=== PATIENT | female | born 1965 | race Two or more races ===

== ENCOUNTER 2017-01-27 15:53 | Emergency (ER) ==
[2017-01-27 16:00] VITALS: BP 174/112; TEMP 97.8; BMI 25.0
--- NOTE | 2017-01-27 16:27 | ED.PDOC ---
General ED Provider: Dr. DIAMOND PAPPAS Chief Complaint: Hand Pain/Injury Stated Complaint: Hit left hand on metal rail 15 minutes prior to arrival in ED Time Seen by Physician: 16:21 Mode of Arrival: Walk-In Information Source: Patient Nursing and Triage Documentation Reviewed and Agree: Yes Musculoskeletal Complaint Exam - Hand/Wrist Complaint/Exam Location of Pain: Reports: Left, Hand Mechanism of Injury: Reports: Trauma Onset/Duration: 15 minutes ago Symptoms Are: Still present Onset of Pain: Reports: Immediate Initial Severity: Moderate Current Severity: Moderate Location: Reports: Discrete (injure base of index finger dorsal side and associated MCP) Character: Reports: Aching, Throbbing Alleviating: Reports: None Aggravating: Reports: Movement Associated Signs and Symptoms: Reports: Swelling, Redness Dominant Hand: Right Related Surgical History: Reports: None Hand/Wrist Findings: Present: Swelling (linear abrasion across base of index finger. Swelling, erythema, and tenderness of MCP), Erythema, Warmth Tenderness: Present: Phalanx Compartment Syndrome Risk Factors: Present: Pain Differential Diagnoses: Contusion, Closed Fracture, Sprain Review of Systems - Review Of Systems Constitutional: Reports: No symptoms Musculoskeletal: Reports: Joint pain, Joint swelling Skin: Reports: Change in color (erythema of left index finger MCP joint), Other (minor linear abrasion across base of dorsal left index finger) Neurological: Reports: No symptoms All Other Systems: Reviewed and Negative Past Medical History - Past Medical History Previously Healthy: Yes Endocrine: Reports: None Cardiovascular: Reports: None Respiratory: Reports: None Hematological: Reports: None Gastrointestinal: Reports: None Genitourinary: Reports: None Neuro/Psych: Reports: None Musculoskeletal: Reports: None Cancer: Reports: None Last Menstrual Period: HYSTERECTOMY - Surgical History General Surgical History: Reports: Hysterectomy - Family History Family History: Reports: None - Social History Smoking Status: Current every day smoker, Heavy tobacco smoker Hx Substance Use: No Alcohol Screening: None - Immunizations Tetanus Shot up to Date: Yes Physical Exam - Physical Exam Appearance: Well-appearing, No pain distress, Well-nourished Ill-appearing: None Pain Distress: None Musculoskeletal: Edema Skin: Warm (erythematous, swollen, tender left index finger MCP joint, linear minor abrasion across same finger base, dorsal side), Dry Interpretation - Radiology Interpretation Radiology Interpretation By: ED Physician Radiology Results: Negative Exam Interpreted: Other (Xray left hand: no fracture or dislocation) Critical Care Note - Critical Care Note Total Time (mins): 0 Course - Course Orders, Labs, Meds: Orders Category Date Time Status HAND, LEFT 3 VIEWS Stat RADS 01/27/17 16:34 Taken Vital Signs: Temp Pulse Resp BP Pulse Ox 01/27/17 15:53 97.8 F 108 H 22 174/112 H 95 Departure - Departure Time of Disposition: 17:01 Disposition: HOME SELF-CARE Discharge Problem: Unspecified sprain of left index finger, initial encounter Instructions: Finger Sprain (ED) Condition: Good Pt referred to PMD for follow-up: No (if no better in one week, see PCP for follow up) Additional Instructions: OTC ibuprofen 600 mg 3 times a day Allergies/Adverse Reactions: Allergies No Known Allergies Allergy (Unverified 01/27/17 16:00) Home Medications: Ambulatory Orders 1 [No Reported Medications] 01/27/17 Disposition Discussed With: Patient
--- NOTE | 2017-01-27 17:04 | DI ---
EXAM: Three Views of the left hand HISTORY: Injury to the base of the index finger TECHNIQUE: AP lateral, oblique views of the left hand were obtained. FINDINGS: No acute fractures are seen. There is anatomic alignment. The soft tissues are normal. IMPRESSION: No acute fracture dislocation seen within the left hand.
== END 2017-01-27 17:13 | disposition home or self-care (01) ==
LOC: ED 15:53
DX: S63.611A Unspecified sprain of left index finger, initial encounter (principal); W22.8XXA Striking against or struck by other objects, initial encounter; F17.210 Nicotine dependence, cigarettes, uncomplicated
CPT/HCPCS: 99282

== ENCOUNTER 2017-02-19 12:31 | Outpatient (CLI) ==
[2017-02-19 13:03] LABS: BASOPHILS # (AUTO) 0.1 K/uL (0-0.2); BASOPHILS % (AUTO) 0.9 % (0.0-3.0); EOSINOPHILS # (AUTO) 0.5 K/ul (0.0-0.7); EOSINOPHILS % (AUTO) 5.9 % (0.0-7.0); HEMATOCRIT 41.4 % (37.0-47.0); HEMOGLOBIN 14.5 g/dl (12.0-16.0); IMMATURE GRANULOCYTE % (AUTO) 0.4 % (0.0-5.0); LYMPHOCYTES # (AUTO) 1.1 K/uL (0.60-3.4); LYMPHOCYTES % (AUTO) 13.1 (10.0-50.0); MEAN CORPUSCULAR HEMOGLOBIN 30.1 pg (27.0-31.0); MEAN CORPUSCULAR VOLUME 85.9 fl (81.0-99.0); MONOCYTES # (AUTO) 0.9 K/uL (0.4-2.0); MONOCYTES % (AUTO) 11.5 (0-10); NEUTROPHILS # (AUTO) 5.5 K/ul (2.0-6.9); NEUTROPHILS % (AUTO) 68.2; PLATELET COUNT 249 10^3/uL (140-440); RED BLOOD COUNT 4.82 10^6/ul (4.20-5.40); WHITE BLOOD COUNT 7.99 K/ul (4.6-10.2)
[2017-02-19 13:43] LABS: ALBUMIN 3.9 g/dL (3.4-5.0); ALBUMIN/GLOBULIN RATIO 1.05; ANION GAP 13.1; BILIRUBIN,TOTAL 0.7 mg/dL (0.00-1.20); BUN/CREATININE RATIO 24.13; CALCIUM 10.2 mg/dL (8.2-10.2); CHOL/HDL RATIO 2.8 (4.5-5.5); CREATININE 0.87 mg/dL (0.60-1.30); POTASSIUM 4.1 mmol/L (3.5-5.10); TOTAL PROTEIN 7.6 g/dL (6.4-8.2)
== END 2017-02-19 12:32 | disposition home or self-care (01) ==
LOC: LAB 12:31
PROVIDERS: ATTEND Emergency Medicine
DX: F33.1 Major depressive disorder, recurrent, moderate (principal); M32.19 Other organ or system involvement in systemic lupus erythematosus; F17.200 Nicotine dependence, unspecified, uncomplicated
CPT/HCPCS: 36415; 80053; 80061; 84443; 85025

== ENCOUNTER 2017-03-03 11:38 | Inpatient (IN) ==
[2017-03-03] MEDS ORDERED: SODIUM CHLORIDE 1,000 ML IV STA (11:47)
[2017-03-03] MEDS ORDERED: SOLU-MEDROL 40 MG IVP STA (11:48)
[2017-03-03] MEDS ORDERED: ROCEPHIN 1 GM in SODIUM CHLORIDE 50 ML IV STA (11:48)
[2017-03-03] MEDS ORDERED: DUONEB NEB STA (11:49)
[2017-03-03] MEDS ORDERED: ROCEPHIN ONE (11:57)
[2017-03-03 12:10] LABS: BASOPHILS % (AUTO) 0.5 % (0.0-3.0); EOSINOPHILS # (AUTO) 0.2 K/ul (0.0-0.7); EOSINOPHILS % (AUTO) 2.7 % (0.0-7.0); HEMATOCRIT 43.6 % (37.0-47.0); HEMOGLOBIN 14.9 g/dl (12.0-16.0); IMMATURE GRANULOCYTE % (AUTO) 0.1 % (0.0-5.0); LYMPHOCYTES # (AUTO) 2.5 K/uL (0.60-3.4); LYMPHOCYTES % (AUTO) 29.9 (10.0-50.0); MEAN CORPUSCULAR HEMOGLOBIN 30.1 pg (27.0-31.0); MEAN CORPUSCULAR HGB CONC 34.2 (31.8-35.4); MEAN CORPUSCULAR VOLUME 88.1 fl (81.0-99.0); MONOCYTES # (AUTO) 0.4 K/uL (0.4-2.0); MONOCYTES % (AUTO) 5.1 (0-10); NEUTROPHILS # (AUTO) 5.1 K/ul (2.0-6.9); NEUTROPHILS % (AUTO) 61.7; PLATELET COUNT 277 10^3/uL (140-440); RED BLOOD COUNT 4.95 10^6/ul (4.20-5.40); WHITE BLOOD COUNT 8.25 K/ul (4.6-10.2)
--- NOTE | 2017-03-03 12:11 | CT ---
EXAM: CT of the chest without contrast. HISTORY: Productive cough. COMPARISON: None. TECHNIQUE: Contiguous axial images at 5 mm intervals obtained from the lung apices to the upper abdo men. Study was performed without contrast. Sagittal and coronal reformats reviewed. FINDINGS: The lung windows show no lobar consolidation or effusion. There are scattered emphysemato us changes bilaterally. Subpleural blebs seen in the right upper lobe. The pulmonary interstitium i s normal. The airways are widely patent. On axial image 37, there is a noncalcified nodule measurin g 3 mm. There are subpleural nodules in the right middle lobe measuring up to 5 mm on axial image 44. No other nodules are identified. The soft tissue windows demonstrate a normal size heart. There i s no significant mediastinal or hilar adenopathy. Coronary artery calcifications are seen. Limited views of the upper abdomen are unremarkable. The visualized portion of the liver, spleen, pa ncreas adrenal glands are normal. IMPRESSION: 1. No acute pulmonary disease. 2. Benign-appearing noncalcified nodules on the right. When to the fissure site criteria, in the low risk patient, no further follow-up is needed. In the high risk patient, consider CT in 12 months. 3. Bullous disease.
[2017-03-03 12:27] LABS: FLU INTERNAL QC INTERNAL QC VALID; RAPID FLU A NEGATIVE (NEGATIVE); RAPID FLU B NEGATIVE (NEGATIVE)
[2017-03-03 12:33] LABS: ALBUMIN 3.6 g/dL (3.4-5.0); ALBUMIN/GLOBULIN RATIO 0.84; BILIRUBIN,TOTAL 0.57 mg/dL (0.00-1.20); BUN/CREATININE RATIO 19.76; CALCIUM 9.8 mg/dL (8.2-10.2); CREATININE 0.86 mg/dL (0.60-1.30); TOTAL PROTEIN 7.9 g/dL (6.4-8.2)
[2017-03-03 12:38] LABS: ABG PCO2 36.2 mmHg (35-45); ABG PH 7.424 (7.35-7.45)
[2017-03-03 12:39] LABS: ABG BASE EXCESS -1 (-2.0-2.0); ABG HCO3 23.7 (22.0-26.0); ABG TCO2 25 (22.0-28.0)
--- NOTE | 2017-03-03 12:47 | ED.PDOC ---
General ED Provider: Dr. KAVEH LOGAN-ER Chief Complaint: Respiratory Complaint Stated Complaint: i cant breathe--im wheezing and coughing Time Seen by Physician: 11:45 Mode of Arrival: Walk-In Information Source: Patient Exam Limitations: No limitations Primary Care Provider: [facility] Nursing and Triage Documentation Reviewed and Agree: Yes Respiratory Complaint Exam - Respiratory Complaint/Exam Onset/Duration: several days Symptoms Are: Still present Timing: Constant Initial Severity: Mild Current Severity: Moderate Location: Chest Character: Reports: Productive cough Aggravating: Reports: URI, Passive smoke exposure Alleviating: Reports: Antibiotics Associated Signs and Symptoms: Reports: Dyspnea, Wheezing, URI. Denies: Rapid breathing, Fever, Chills, Chest pain, Pleuritic chest pain, Hemoptysis, Dizziness, Calf pain, Calf swelling, Edema, Nasal congestion, Hoarseness, Sinus discomfort, Vomiting, Sore throat, Weight loss, Decreased oral intake, Increased thirst, Increased appetite, Increased urination Related History: Reports: Similar episode History of Healthcare-Acquired Pneumonia: No Cardiac Risk Factors: Reports: Smoking Pseudomonas Risk Factors: Reports: Chronic Lung Disease Tuberculosis Risk Factors: Reports: None Status Asthmaticus Risk Factors: Reports: None Home Oxygen Use: No Recent Stress Test: No Recent Echo/LV Function: No Current Antibiotic Use: No Current Asthma Medication Use: Yes Respiratory Distress: Mild Inadequate Respiratory Effort: No Dysphagia Present: No Stridor Present: No JVD Present: No Accessory Muscle Use: No Retractions: Not Present Diminished Breath Sounds: No Prolonged Respiration: Expiratory phase Sinus Tenderness: None Grunting Respirations: No Kussmaul Respirations: No Differential Diagnoses: Asthma, CHF, COPD Exacerbation Review of Systems - Review Of Systems Constitutional: Reports: No symptoms Eyes: Reports: No symptoms Ears, Nose, Mouth, Throat: Reports: No symptoms Respiratory: Reports: Cough, Short of air, Wheezing Cardiac: Reports: No symptoms GI: Reports: No symptoms : Reports: No symptoms Musculoskeletal: Reports: No symptoms Skin: Reports: No symptoms Neurological: Reports: No symptoms Endocrine: Reports: No symptoms Hematologic/Lymphatic: Reports: No symptoms All Other Systems: Reviewed and Negative Past Medical History - Past Medical History Previously Healthy: Yes Endocrine: Reports: None Cardiovascular: Reports: None Respiratory: Reports: COPD, Asthma Hematological: Reports: None Gastrointestinal: Reports: None Genitourinary: Reports: None Neuro/Psych: Reports: None Musculoskeletal: Reports: None Cancer: Reports: None Last Menstrual Period: n/a - Surgical History General Surgical History: Reports: Hysterectomy - Family History Family History: Reports: None - Social History Smoking Status: Current every day smoker Hx Substance Use: No Alcohol Screening: None Physical Exam - Physical Exam Appearance: Well-appearing, No pain distress, Well-nourished Eyes: ZEINAB, EOMI, Conjunctiva clear ENT: Ears normal, Nose normal, Oropharynx normal Neck: Supple Respiratory: Rhonchi, Wheezes Cardiovascular: RRR GI/: Soft, Nontender, No masses, Bowel sounds normal, No Organomegaly Musculoskeletal: Normal strength Skin: Warm Neurological: Sensation intact, Motor intact, Reflexes intact, Cranial nerves intact, Alert, Oriented Psychiatric: Affect appropriate, Mood appropriate, Anxious Interpretation - Radiology Interpretation Radiology Interpretation By: ED Physician Radiology Results: No acute changes ("bullous dz") Re-Evaluation - Re-Evaluation Time of Re-Evaluation: 12:47 Status: Improved Vital Signs Stable: Yes Pain Level: 0 Appearance: NAD Lungs: Clear Skin: Warm and Dry Neuro: Alert and Oriented X3 CV: RRR Physician Notification - Case Discussed Physician Notified: dr [email or web address] Time of Notification: 12:57 Critical Care Note - Critical Care Note Total Time (mins): 0 Course - Course Hematology/Chemistry: 03/03/17 12:03 03/03/17 12:03 Orders, Labs, Meds: Lab Review 03/03/17 03/03/17 03/03/17 11:46 12:03 12:03 WBC 8.25 RBC 4.95 Hgb 14.9 Hct 43.6 MCV 88.1 MCH 30.1 MCHC 34.2 RDW Coeff of [place] 13.7 Plt Count 277 Immature Gran % (Auto) 0.1 Neut % (Auto) 61.7 Lymph % (Auto) 29.9 [place] % (Auto) 5.1 Eos % (Auto) 2.7 Baso % (Auto) 0.5 Immature Gran # (Auto) 0.0 Neut # 5.1 Lymph # 2.5 [place] # 0.4 Eos # 0.2 Baso # 0.0 Puncture Site R rad O2 Saturation 87.0 L ABG pH 7.424 ABG pCO2 36.2 ABG pO2 51.0 L* ABG HCO3 23.7 ABG Total CO2 25 ABG Base Excess -1 Suman Test + FiO2 % 21.0 Sodium 141 Potassium 4.0 Chloride 105 Carbon Dioxide 25 Anion Gap 15.0 BUN 17 Creatinine 0.86 Estimated GFR (MDRD) 70.00 BUN/Creatinine Ratio 19.76 Glucose 82 Lactic Acid Calcium 9.8 Total Bilirubin 0.57 AST 22 ALT 29 Alkaline Phosphatase 85 B-Natriuretic Peptide Total Protein 7.9 Albumin 3.6 Globulin 4.3 Albumin/Globulin Ratio 0.84 Procalcitonin Influenza A (Rapid) Influenza B (Rapid) 03/03/17 03/03/17 03/03/17 12:03 12:03 12:03 WBC RBC Hgb Hct MCV MCH MCHC RDW Coeff of [place] Plt Count Immature Gran % (Auto) Neut % (Auto) Lymph % (Auto) [place] % (Auto) Eos % (Auto) Baso % (Auto) Immature Gran # (Auto) Neut # Lymph # [place] # Eos # Baso # Puncture Site O2 Saturation ABG pH ABG pCO2 ABG pO2 ABG HCO3 ABG Total CO2 ABG Base Excess Suman Test FiO2 % Sodium Potassium Chloride Carbon Dioxide Anion Gap BUN Creatinine Estimated GFR (MDRD) BUN/Creatinine Ratio Glucose Lactic Acid 11.4 Calcium Total Bilirubin AST ALT Alkaline Phosphatase B-Natriuretic Peptide 29 Total Protein Albumin Globulin Albumin/Globulin Ratio Procalcitonin < 0.05 Influenza A (Rapid) Influenza B (Rapid) 03/03/17 12:03 WBC RBC Hgb Hct MCV MCH MCHC RDW Coeff of [place] Plt Count Immature Gran % (Auto) Neut % (Auto) Lymph % (Auto) [place] % (Auto) Eos % (Auto) Baso % (Auto) Immature Gran # (Auto) Neut # Lymph # [place] # Eos # Baso # Puncture Site O2 Saturation ABG pH ABG pCO2 ABG pO2 ABG HCO3 ABG Total CO2 ABG Base Excess Suman Test FiO2 % Sodium Potassium Chloride Carbon Dioxide Anion Gap BUN Creatinine Estimated GFR (MDRD) BUN/Creatinine Ratio Glucose Lactic Acid Calcium Total Bilirubin AST ALT Alkaline Phosphatase B-Natriuretic Peptide Total Protein Albumin Globulin Albumin/Globulin Ratio Procalcitonin Influenza A (Rapid) Negative Influenza B (Rapid) Negative Orders Category Date Time Status ABG DRAW REQUEST Stat CARDIO 03/03/17 11:46 Ordered EKG-(ED ONLY) Stat CARDIO 03/03/17 11:46 Ordered NEBULIZER TREATMENT Stat CARDIO 03/03/17 11:49 Ordered IV [ED IV/MEDIPORT/POWERPORT] .ONCE EMERGENCY 03/03/17 11:47 Active ABG Stat LAB 03/03/17 11:46 Completed B-TYPE NATRIURETIC PEPTIDE Stat LAB 03/03/17 12:03 Completed BLOOD CULTURE Stat LAB 03/03/17 12:03 Received CBC W/ AUTO DIFF Stat LAB 03/03/17 12:03 Completed COMPREHENSIVE METABOLIC PANEL Stat LAB 03/03/17 12:03 Completed LACTIC ACID Stat LAB 03/03/17 12:03 Completed PROCALCITONIN Stat LAB 03/03/17 12:03 Completed RAPID FLU A/B Stat LAB 03/03/17 12:03 Completed 0.9 % Sodium Chloride [Saline Flush] MEDS 03/03/17 11:47 Ordered 1 syr IVF PRN PRN Ceftriaxone Sodium [Rocephin] MEDS 03/03/17 11:57 Discontinued 1 gm .ROUTE .STK-MED ONE Ceftriaxone Sodium [Rocephin] 1 gm MEDS 03/03/17 11:48 Discontinued 0.9 % Sodium Chloride [Sodium Chloride] 50 ml IV ONCE Ipratropium/Albuterol Neb [Duoneb] MEDS 03/03/17 11:49 Discontinued 1 vial NEB ONCE STA Methylprednisolone Sod Succ/Pf [Solu-Medrol 40 mg] MEDS 03/03/17 11:48 Discontinued 40 mg IVP ONCE STA Sodium Chloride 0.9% [Sodium Chloride] 1,000 ml MEDS 03/03/17 11:47 Active IV 100 mls/hr CT CHEST W/O CONTRAST Stat RADS 03/03/17 11:47 Completed Medications Generic Name Dose Route Start Last Admin Trade Name Freq PRN Reason Stop Dose Admin Sodium Chloride 1,000 mls @ 100 mls/hr 03/03/17 11:47 03/03/17 12:15 Sodium Chloride IV 03/03/17 21:46 100 mls/hr .Q10H STA Administration Sodium Chloride 1 syr 03/03/17 11:47 03/03/17 12:16 Saline Flush IVF 1 syr PRN PRN Administration To flush IV Discontinued Medications Generic Name Dose Route Start Last Admin Trade Name Freq PRN Reason Stop Dose Admin Albuterol/Ipratropium 1 vial 03/03/17 11:49 03/03/17 12:35 Duoneb NEB 03/03/17 11:50 1 vial ONCE STA Administration Ceftriaxone Sodium 1 gm/ 50 mls @ 75 mls/hr 03/03/17 11:48 03/03/17 12:16 Sodium Chloride IV 03/03/17 12:27 75 mls/hr ONCE STA Administration Methylprednisolone Sodium Succinate 40 mg 03/03/17 11:48 03/03/17 12:14 Solu-Medrol 40 Mg IVP 03/03/17 11:49 40 mg ONCE STA Administration Vital Signs: Temp Pulse Resp BP Pulse Ox 03/03/17 11:40 97.6 F 92 H 16 155/96 H 98 Departure - Departure Time of Disposition: 12:57 Disposition: ADMITTED INPATIENT Discharge Problem: COPD exacerbation Acute respiratory failure Qualifiers: Respiratory failure complication: hypoxia Qualified Code(s): J96.01 - Acute respiratory failure with hypoxia Instructions: COPD (Chronic Obstructive Pulmonary Disease) (ED) Condition: Fair Pt referred to PMD for follow-up: Yes Allergies/Adverse Reactions: Allergies No Known Allergies Allergy (Verified 03/03/17 11:42) Disposition Discussed With: Patient, Family
[2017-03-03] MEDS ORDERED: TESSALON PERLES PO PRN (13:02)
[2017-03-03 14:17] VITALS: BMI 25.2
[2017-03-03] MEDS: DUONEB NEB SCH ×2 (17:06→23:08)
[2017-03-03] MEDS: SOLU-MEDROL 40 MG IVP SCH (20:22)
[2017-03-04 04:39] LABS: BASOPHILS % (AUTO) 0.1 % (0.0-3.0); HEMATOCRIT 38.4 % (37.0-47.0); HEMOGLOBIN 13.2 g/dl (12.0-16.0); IMMATURE GRANULOCYTE % (AUTO) 0.5 % (0.0-5.0); LYMPHOCYTES # (AUTO) 0.7 K/uL (0.60-3.4); LYMPHOCYTES % (AUTO) 6.1 (10.0-50.0); MEAN CORPUSCULAR HEMOGLOBIN 29.9 pg (27.0-31.0); MEAN CORPUSCULAR HGB CONC 34.4 (31.8-35.4); MEAN CORPUSCULAR VOLUME 86.9 fl (81.0-99.0); MONOCYTES # (AUTO) 0.1 K/uL (0.4-2.0); MONOCYTES % (AUTO) 1.1 (0-10); NEUTROPHILS # (AUTO) 9.9 K/ul (2.0-6.9); NEUTROPHILS % (AUTO) 92.2; PLATELET COUNT 258 10^3/uL (140-440); RED BLOOD COUNT 4.42 10^6/ul (4.20-5.40); WHITE BLOOD COUNT 10.78 K/ul (4.6-10.2)
[2017-03-04 04:58] LABS: ALBUMIN 3.1 g/dL (3.4-5.0); ALBUMIN/GLOBULIN RATIO 0.91; ANION GAP 14.8; BILIRUBIN,TOTAL 0.19 mg/dL (0.00-1.20); BUN/CREATININE RATIO 19.51; CALCIUM 9.3 mg/dL (8.2-10.2); CREATININE 0.82 mg/dL (0.60-1.30); POTASSIUM 3.8 mmol/L (3.5-5.10); TOTAL PROTEIN 6.5 g/dL (6.4-8.2)
[2017-03-04] MEDS: SOLU-MEDROL 40 MG IVP SCH ×3 (05:05→21:09)
[2017-03-04] MEDS: DUONEB NEB SCH ×4 (05:07→23:10)
[2017-03-04] MEDS ORDERED: TYLENOL PO PRN (08:30)
[2017-03-04] MEDS: ROCEPHIN 1 GM in SODIUM CHLORIDE 50 ML IV SCH (09:00)
[2017-03-04] MEDS: WELLBUTRIN SR PO SCH (09:00)
[2017-03-04] MEDS ORDERED: NON-FORMULARY MEDICATION (Bupropion Hcl [Wellbutrin Xl] 150 MG) PO SCH (09:00)
[2017-03-04] MEDS: NICODERM 21 MG TD SCH (09:01)
[2017-03-04] MEDS: LIBRIUM PO SCH ×2 (09:01→21:09)
[2017-03-04] MEDS: LOVENOX SUBCUT SCH (09:02)
[2017-03-04] MEDS ORDERED: ATIVAN IVP STA (10:02)
[2017-03-04] MEDS: SODIUM CHLORIDE 1,000 ML IV SCH ×2 (12:03→15:28)
[2017-03-05 05:06] LABS: BASOPHILS % (AUTO) 0.1 % (0.0-3.0); HEMATOCRIT 37.5 % (37.0-47.0); HEMOGLOBIN 12.8 g/dl (12.0-16.0); LYMPHOCYTES # (AUTO) 0.7 K/uL (0.60-3.4); LYMPHOCYTES % (AUTO) 3.4 (10.0-50.0); MEAN CORPUSCULAR HEMOGLOBIN 29.8 pg (27.0-31.0); MEAN CORPUSCULAR HGB CONC 34.1 (31.8-35.4); MEAN CORPUSCULAR VOLUME 87.4 fl (81.0-99.0); MONOCYTES # (AUTO) 0.4 K/uL (0.4-2.0); MONOCYTES % (AUTO) 2.1 (0-10); NEUTROPHILS # (AUTO) 18.1 K/ul (2.0-6.9); NEUTROPHILS % (AUTO) 93.4; PLATELET COUNT 253 10^3/uL (140-440); RED BLOOD COUNT 4.29 10^6/ul (4.20-5.40)
[2017-03-05] MEDS: DUONEB NEB SCH ×4 (05:06→21:38)
[2017-03-05 05:23] LABS: ALBUMIN 3.1 g/dL (3.4-5.0); ALBUMIN/GLOBULIN RATIO 1.03; ANION GAP 12.1; BILIRUBIN,TOTAL 0.19 mg/dL (0.00-1.20); BUN/CREATININE RATIO 26.02; CALCIUM 9.3 mg/dL (8.2-10.2); CREATININE 0.73 mg/dL (0.60-1.30); POTASSIUM 4.1 mmol/L (3.5-5.10); TOTAL PROTEIN 6.1 g/dL (6.4-8.2)
[2017-03-05] MEDS: SOLU-MEDROL 40 MG IVP SCH ×2 (05:41→15:24)
[2017-03-05] MEDS ORDERED: ZANTAC PO SCH (08:30)
[2017-03-05] MEDS: ROCEPHIN 1 GM in SODIUM CHLORIDE 50 ML IV SCH (09:34)
[2017-03-05] MEDS: LOVENOX SUBCUT SCH (09:38)
[2017-03-05] MEDS: ZANTAC PO SCH (09:39)
[2017-03-05] MEDS: LIBRIUM PO SCH (09:39)
[2017-03-05] MEDS: WELLBUTRIN SR PO SCH (09:40)
[2017-03-05] MEDS: NICODERM 21 MG TD SCH (09:40)
--- NOTE | 2017-03-05 13:41 | PN ---
DATE OF SERVICE: 03/04/17 SUBJECTIVE: Admitted with acute respiratory failure. The patient is breathing better. She is still having cough and congestion, getting yellow-green phlegm. is in the room. REVIEW OF SYSTEMS: CONSTITUTIONAL: No fever, no chills. HEENT: Normal. ENDOCRINE: No weight gain, no weight loss. CVS: No angina symptoms. No CHF symptoms. No palpitations. No atypical chest pain for CAD. No shortness of breath. No PND, no orthopnea. RESPIRATORY: Cough and congestion. No hemoptysis. GI: No nausea, no vomiting. No abdominal pain. : No hematuria. No polyuria. MUSCULOSKELETAL:. No joint swelling. PSYCHIATRIC: Not anxious. No depression. No suicidal thoughts. No homicidal thoughts. SKIN: Intact. No rash. PHYSICAL EXAMINATION: V/S: BP 142/74, respiratory rate 20, heart rate 99, temperature 98.3, saturation 98 on 2L. HEENT: Normocephalic, atraumatic. Mucosa dry, pallor positive. No icterus. NECK: Supple. No JVD, no carotid bruit. No lymphadenopathy. LUNGS: Decreased basilar crackles. No expiratory wheeze. No rales or rhonchi. HEART: S1, S2 normal. No S3. No murmur, gallop or regurgitation. ABDOMEN: Soft, nontender. Bowel sounds active. No rigidity. No rebound or guarding. No CVA tenderness. EXTREMITIES: No clubbing, cyanosis or pedal edema. MUSCULOSKELETAL: No joint swelling. NEUROLOGIC: Awake, alert, oriented times three. No focal deficit. LYMPHATIC: No lymph nodes palpable. SKIN: Intact. LABS: White count 10.78, hemoglobin 13.2, hematocrit 38.4, platelet count 258. Sodium 141, potassium 3.8, chloride 108, bicarb 22, BUN 16, creatinine 0.82. ASSESSMENT: 1. ACUTE RESPIRATORY FAILURE 2. COPD EXACERBATION SECONDARY TO BRONCHITIS 3. HYPERGLYCEMIA FROM STEROIDS 4. HISTORY OF LUPUS NOT ON MEDICATION 5. DEPRESSION - WELLBUTRIN IS HELPING 6. CONTINUE NICOTINE USE PLAN: 1. Continue Rocephin, Duonebs, Solu-Medrol 40 q.8hr 2. Daily I & O's TIME SPENT: More than 35 minutes MTDD
--- NOTE | 2017-03-05 13:50 | PN ---
DATE OF SERVICE: 03/05/17 SUBJECTIVE: The patient was admitted with acute respiratory failure and COPD exacerbation. The patient is going out for smoking, still having some shortness of breath with exertion, coughing getting some phlegm. Complains about being anxious being here. No fever, no chills. No PND, no orthopnea. REVIEW OF SYSTEMS: CONSTITUTIONAL: No fever, no chills. HEENT: Normal. ENDOCRINE: No weight gain, no weight loss. CVS: No angina symptoms. No CHF symptoms. No palpitations. No atypical chest pain for CAD. Shortness of breath with exertion. No PND, no orthopnea. RESPIRATORY: Cough productive of phlegm. no hemoptysis. No PND. GI: No nausea, no vomiting. No abdominal pain. : No hematuria. No polyuria. MUSCULOSKELETAL:. No joint swelling. PSYCHIATRIC: Anxious. No depression. No suicidal thoughts. No homicidal thoughts. SKIN: Intact. No rash. PHYSICAL EXAMINATION: V/S: BP 117/72, respiratory rate 20, heart rate 68, temperature 97.0, saturation 99 on 2L. HEENT: Normocephalic, atraumatic. Mucosa dry. NECK: Supple. No JVD, no carotid bruit. No lymphadenopathy. LUNGS: Decreased basilar crackles. No rales or rhonchi. HEART: S1, S2 normal. No S3. No murmur, gallop or regurgitation. ABDOMEN: Soft, nontender. Bowel sounds active. No rigidity. No rebound or guarding. No CVA tenderness. EXTREMITIES: No clubbing, cyanosis or pedal edema. MUSCULOSKELETAL: No joint swelling. NEUROLOGIC: Awake, alert, oriented times three. No focal deficit. LYMPHATIC: No lymph nodes palpable. SKIN: Intact. LABS: Sodium 139, potassium 4.1, chloride 107, bicarb 24, BUN 19, creatinine 0.73. White count 19.40, hemoglobin 12.8, hematocrit 37.5, platelet count 253. ASSESSMENT: 1. ACUTE RESPIRATORY FAILURE SECONDARY TO ACUTE BRONCHITIS. 2. COPD EXACERBATION SECONDARY TO BRONCHITIS. 3. LEUKOCYTOSIS FROM STEROIDS. 4. HYPERGLYCEMIA FROM STEROIDS. 5. HISTORY OF LUPUS. 6. DEPRESSION/ANXIETY. PLAN: 1. Will get a chest x-ray 2. Continue Librium for anxiety 3. Nicotine patch 4. Rocephin 5. Daily I & O's 6. Will follow with the patient in daily rounds TIME SPENT: More than 35 minutes ABELARDO
--- NOTE | 2017-03-05 14:24 | DI ---
EXAM: Two views of the chest. History: Cough and wheezing Comparison: Chest CT 03/03/2017 Findings: Heart size is within normal limits. No focal consolidation. No appreciable pleural fluid and no pneumothorax. No acute osseous abnormalities. Atherosclerotic vascular calcifications of th e aortic knob. Impression: No acute cardiopulmonary process.
[2017-03-05] MEDS: SODIUM CHLORIDE 1,000 ML IV SCH (15:28)
[2017-03-05] MEDS ORDERED: ATIVAN PO STA (18:36)
[2017-03-05] MEDS ORDERED: PREDNISONE PO SCH (20:30)
[2017-03-06] MEDS: DUONEB NEB SCH (05:02)
[2017-03-06 05:09] LABS: BASOPHILS % (AUTO) 0.1 % (0.0-3.0); HEMATOCRIT 38.4 % (37.0-47.0); IMMATURE GRANULOCYTE % (AUTO) 0.7 % (0.0-5.0); LYMPHOCYTES % (AUTO) 5.8 (10.0-50.0); MEAN CORPUSCULAR HEMOGLOBIN 29.7 pg (27.0-31.0); MEAN CORPUSCULAR HGB CONC 33.9 (31.8-35.4); MEAN CORPUSCULAR VOLUME 87.7 fl (81.0-99.0); MONOCYTES # (AUTO) 0.7 K/uL (0.4-2.0); MONOCYTES % (AUTO) 4.2 (0-10); NEUTROPHILS # (AUTO) 14.5 K/ul (2.0-6.9); NEUTROPHILS % (AUTO) 89.2; PLATELET COUNT 256 10^3/uL (140-440); RED BLOOD COUNT 4.38 10^6/ul (4.20-5.40); WHITE BLOOD COUNT 16.28 K/ul (4.6-10.2)
[2017-03-06 05:39] LABS: ALBUMIN/GLOBULIN RATIO 0.88; BILIRUBIN,TOTAL 0.18 mg/dL (0.00-1.20); BUN/CREATININE RATIO 22.38; CALCIUM 9.1 mg/dL (8.2-10.2); CREATININE 0.67 mg/dL (0.60-1.30); TOTAL PROTEIN 6.4 g/dL (6.4-8.2)
[2017-03-06] MEDS: ZANTAC PO SCH (06:12)
[2017-03-06 06:28] VITALS: BP 129/87; TEMP 97
--- NOTE | 2017-04-19 14:06 | HP ---
DATE OF SERVICE: 03/03/17 CHIEF COMPLAINT: Cough, congestion and shortness of breath HISTORY OF PRESENT ILLNESS: This is a 51 year old female with history of smoking came to the emergency room as she has been coughing, congested getting short of breath and getting yellow/ green phlegm gradually getting worse and came to the emergency room. She did get antibiotic two weeks ago and did not get better and the condition kept on getting worse so came to the emergency room seen by ER physician Dr. Lara. Evaluation found CAT scan of the chest was negative. ABG were done which showed pH 7.424, pO2 36.2, pO2 51, BUN and creatinine was normal. WBC was normal. CT chest was negative. After initial breathing treatment the patient was still having difficulty breathing and at that time the patient was admitted to the hospital with acute respiratory failure, COPD exacerbation secondary to the bronchitis. REVIEW OF SYSTEMS: CONSTITUTIONAL: No fever, no chills. Weakness and tiredness. HEENT: Normal. ENDOCRINE: No weight gain; no weight loss. CVS: No chest pain. No PND, no orthopnea. Shortness of breath. No PND, no orthopnea. RESPIRATORY: Cough, Congestion. No hemoptysis. GI: No nausea, no vomiting. No abdominal pain. No melena. : No hematuria. No polyuria. MUSCULOSKELETAL: No joint swelling. PSYCHIATRIC: Not anxious. No depression. No suicidal thoughts. No homicidal thoughts. SKIN: Intact, no open lesions. PAST MEDICAL HISTORY: COPD Hypertension Continued nicotine use Osteoarthritis Lupus Depression, Wellbutrin helps Anxiety PAST SURGICAL HISTORY: Hysterectomy PERSONAL HISTORY: The patient is and lives with the . Family history is significant for the cardiac problems and diabetes. MEDICATIONS: Wellbutrin ALLERGIES: No known drug allergies PHYSICAL EXAMINATION: V/S: Blood pressure 155/96, respiratory rate 16, heart rate 98, temperature 97.6 with saturation is 92%. HEENT: Atraumatic, normocephalic. No scleral icterus. Mucosa dry. NECK: Supple. No JVD, no bruit. No lymphadenopathy. No thyromegaly. HEART: S1, S2 normal. No murmur. No cyanosis or clubbing. No ascites. LUNGS: Decreased and basilar crackles with mild expiratory wheeze. No rales or rhonchi. ABDOMEN: Soft, nontender. Bowel sounds are active. No CVA tenderness. No rigidity or guarding. EXTREMITIES: No cyanosis, clubbing or pedal edema. MUSCULOSKELETAL: Normal joints, no swelling. NEUROLOGIC: The patient is SKIN: Intact; no open lesions. LYMPHATIC: No lymph nodes palpable. LABS: WBC 8.25, hgb 14.9, hct 43.6, plt count 277, sodium 141, potassium 4.0, chloride 105, bicarb 25, BUN 17, creatinine 0.68, lactic acid 11.6, procalcitonin 0.05 ASSESSMENT: 1. COPD exacerbation secondary to the bronchitis 2. Acute respiratory failure with history of continued nicotine use 3. Hypothyroidism 4. Hysterectomy 5. Depression 6. Anxiety PLAN: 1. Admit patient to regular floor 2. CBC and CMP today and daily 3. Cardiac enzymes and Troponin 4. Rocephin 1 gram daily 5. DUO Nebs 6. Breathing treatments 7. Accu-checks 8. Breathing treatments TIME SPENT: MORE THAN 70 minutes MTDD
--- NOTE | 2017-04-19 14:13 | DS ---
DATE OF SERVICE: 03/06/17 FINAL DIAGNOSIS: 1. Acute respiratory failure secondary to COPD exacerbation 2. Continued nicotine use 3. Depression 4. Anxiety 5. Lupus DISCHARGE INSTRUCTIONS: Discharge the patient home. Followup with PMD. Resume home medication. Drink plenty of water, probiotics and yogurt. MEDICATIONS AT DISCHARGE: Wellbutrin NEW PRESCRIPTIONS: NicoDerm Patch Keflex 500mg twice a day for 5 days Prednisone 10mg twice a day for 5 days DIET INSTRUCTIONS: Cardiac and healthy ACTIVITY: As much as tolerated. Get plenty of rest. SMOKING: Counseling for smoking done DISEASE SPECIFIC EDUCATION: COPD Pneumonia and need for pneumonia vaccination and verbalized understanding. HOSPITAL COURSE: Landon Abdi who is a 51 year old female came to the emergency room with cough , congestion and shortness of breath was found to be in acute respiratory failure with pH of 7.242, pCO2 36.2, pO2 51. Even after initial treatment the patient was still short of breath and cough and congested. At that time she was admitted to the hospital and started on the antibiotics Rocephin, breathing treatment, DUO NEBS and Solu-Medrol. With that the patient started feeling better but the patient was having anxiety issues. Librium twice a day was started and says that it was not helping then dose of Ativan was given which did help. Repeat chest x-ray done did not show any infiltration. At that time the patient being discharged home. TIME SPENT: MORE THAN 35 MINUTES MTDD
== END 2017-03-06 09:13 | disposition home or self-care (01) | DRG 190 ==
LOC: ED 11:38 → MEDSURG B 13:09
PROVIDERS: ADMIT Emergency Medicine; ATTEND Emergency Medicine
DX: J44.1 Chronic obstructive pulmonary disease with (acute) exacerbation (principal); J96.01 Acute respiratory failure with hypoxia; J20.9 Acute bronchitis, unspecified; J44.0 Chronic obstructive pulmonary disease with (acute) lower respiratory infection; R06.02 Shortness of breath; F17.200 Nicotine dependence, unspecified, uncomplicated; F41.8 Other specified anxiety disorders; M32.9 Systemic lupus erythematosus, unspecified; R05 Cough; R73.9 Hyperglycemia, unspecified; D72.829 Elevated white blood cell count, unspecified; Z79.899 Other long term (current) drug therapy
CPT/HCPCS: 36415; 80053; 82803; 83605; 83880; 84145; 85025; 87040; 87804; 93005; 93010; 94640; 94761; 96365; 96375; 99223; 99233; 99239; 99284

== ENCOUNTER 2017-08-28 08:04 | Emergency (ER) | payer OTHER ==
[2017-08-28 08:11] VITALS: BP 124/77; TEMP 97.6; BMI 26.6
--- NOTE | 2017-08-28 09:12 | DI ---
EXAM: Four views of the right wrist. History: Right wrist pain. Findings: No acute fracture or dislocation. No abnormal calcifications or radiopaque foreign bodies . Joint spaces are preserved. Impression: Unremarkable exam
--- NOTE | 2017-08-28 09:13 | DI ---
EXAM: Three views of the right hand. History: Right hand pain. Findings: No acute fracture or dislocation. No abnormal calcifications or radiopaque foreign bodies . Joint spaces are relatively preserved. No abnormal calcifications or radiopaque foreign bodies. Soft tissue prominence involving the PIP joints. Impression: 1. No acute osseous abnormality. 2. Soft tissue prominence of the PIP joints.
--- NOTE | 2017-08-28 09:26 | ED.PDOC ---
General ED Provider: Dr. ELHAM PIRES Chief Complaint: Wrist Pain/Injury Stated Complaint: right hand and wrist injury Time Seen by Physician: 08:09 (seen with September ) Mode of Arrival: Walk-In Information Source: Patient Exam Limitations: No limitations Primary Care Provider: FARRAH PAULINO Referred to ED by: Other (no other injury offered ) Nursing and Triage Documentation Reviewed and Agree: Yes Reviewed sepsis parameters & appropriate labs ordered?: Yes (fall 1 day ago) System Inflammatory Response Syndrome: Not Applicable Sepsis Protocol: For patient's 13 years and over: Temp is 96.8 and below OR 101 and greater Pulse >90 BPM Resp >20/minute Acutely Altered Mental Status Are patient's symptoms suggestive of a new infection, such as: -Pneumonia -Skin, Soft Tissue -Endocarditis -UTI -Bone, Joint Infection -Implantable Device -Acute Abdominal Infection -Wound Infection -Meningitis -Blood Stream Catheter Infection -Unknown System Inflammatory Response Syndrome: Not Applicable Musculoskeletal Complaint Exam - Hand/Wrist Complaint/Exam Location of Pain: Reports: Right, Hand, Wrist Mechanism of Injury: Reports: Trauma (fall from standing postion) Onset/Duration: 1 day Symptoms Are: Still present Onset of Pain: Reports: Immediate Initial Severity: Moderate Current Severity: Moderate Location: Reports: Discrete Character: Reports: Aching Alleviating: Reports: Rest Aggravating: Reports: Movement Associated Signs and Symptoms: Denies: Swelling, Redness, Bruising, Fever, Weakness, Numbness, Tingling Dominant Hand: Right Related Surgical History: Reports: None Hand/Wrist Findings: Absent: Swelling, Ecchymosis, Abnormal contour, Rotation, Ligamentous instability, Tinel's Sign, Phalen's Sign, Laceration, Nail avulsion , Subungal hematoma, Erythema, Warmth Tenderness: Present: Ulna. Absent: Snuff box, Carpal Differential Diagnoses: Sprain, Strain Review of Systems - Review Of Systems Constitutional: Reports: No symptoms Eyes: Reports: No symptoms Ears, Nose, Mouth, Throat: Reports: No symptoms Respiratory: Reports: No symptoms Cardiac: Reports: No symptoms GI: Reports: No symptoms : Reports: No symptoms Musculoskeletal: Reports: Joint pain (right hand ) Skin: Reports: No symptoms Neurological: Reports: No symptoms Endocrine: Reports: No symptoms Hematologic/Lymphatic: Reports: No symptoms All Other Systems: Reviewed and Negative Past Medical History - Past Medical History Previously Healthy: Yes Endocrine: Reports: None Cardiovascular: Reports: None Respiratory: Reports: COPD, Asthma Hematological: Reports: None Gastrointestinal: Reports: None Genitourinary: Reports: None Neuro/Psych: Reports: None Musculoskeletal: Reports: None Cancer: Reports: None Last Menstrual Period: NA - Surgical History General Surgical History: Reports: Hysterectomy - Family History Family History: Reports: None - Social History Smoking Status: Current some day smoker Hx Substance Use: No Alcohol Screening: None Physical Exam - Physical Exam Appearance: Well-appearing, No pain distress, Well-nourished Eyes: ZEINAB, EOMI, Conjunctiva clear ENT: Ears normal, Nose normal, Oropharynx normal Respiratory: Airway patent, Breath sounds clear, Breath sounds equal, Respirations nonlabored Cardiovascular: RRR, Pulses normal, No rub, No murmur GI/: Soft, Nontender, No masses, Bowel sounds normal, No Organomegaly Musculoskeletal: Normal strength, No edema, No calf tenderness, Limited ROM ( right wrist ) Skin: Warm, Dry, Normal color Neurological: Sensation intact, Motor intact, Reflexes intact, Cranial nerves intact, Alert, Oriented Psychiatric: Affect appropriate, Mood appropriate Interpretation - Radiology Interpretation Radiology Interpretation By: Radiologist Radiology Results: No acute changes Critical Care Note - Critical Care Note Total Time (mins): 0 Course - Course Orders, Labs, Meds: Orders Category Date Time Status HAND, RIGHT 3 VIEWS Stat RADS 08/28/17 08:46 Completed WRIST, RIGHT 3 VIEWS Stat RADS 08/28/17 08:46 Completed Vital Signs: Temp Pulse Resp BP Pulse Ox 08/28/17 08:06 97.6 F 104 H 18 124/77 94 L Departure - Departure Time of Disposition: 09:26 (there was no pain o the axial load of thr tight thumb . no sunff box pain) Disposition: HOME SELF-CARE Discharge Problem: Sprain of wrist, right Qualifiers: Encounter type: initial encounter Qualified Code(s): S63.501A - Unspecified sprain of right wrist, initial encounter Instructions: Wrist Sprain (ED) Condition: Good Pt referred to PMD for follow-up: Yes IPMP verified?: No Allergies/Adverse Reactions: Allergies No Known Allergies Allergy (Verified 08/28/17 08:05) Home Medications: Ambulatory Orders Nicotine 21 mg [Nicoderm 21 mg] 1 patch TD DAILY #30 patch.[email or web address] 03/06/17
== END 2017-08-28 09:48 | disposition home or self-care (01) ==
LOC: ED 08:04
DX: S63.501A Unspecified sprain of right wrist, initial encounter (principal); W19.XXXA Unspecified fall, initial encounter; F17.210 Nicotine dependence, cigarettes, uncomplicated
CPT/HCPCS: 99283

== ENCOUNTER 2017-09-26 10:33 | Emergency (ER) ==
[2017-09-26 10:39] VITALS: BP 141/93; TEMP 97.8; BMI 26.8
--- NOTE | 2017-09-26 10:57 | ED.PDOC ---
General ED Provider: Dr. KAVEH PRADO Chief Complaint: Syncope Stated Complaint: I passed out. Patient states she was at work, became lightheaded and next thing she recalls is that they were helping her off floor. State she felt fine this am--. States she ate breakfast--no chest pain--last syncopal episode occured at 's Skine is w/d--color good. Time Seen by Physician: 10:40 Mode of Arrival: Walk-In Information Source: Patient Exam Limitations: No limitations Primary Care Provider: FARRAH PAULINO Nursing and Triage Documentation Reviewed and Agree: Yes Reviewed sepsis parameters & appropriate labs ordered?: Yes System Inflammatory Response Syndrome: Not Applicable Sepsis Protocol: For patient's 13 years and over: Temp is 96.8 and below OR 101 and greater Pulse >90 BPM Resp >20/minute Acutely Altered Mental Status Are patient's symptoms suggestive of a new infection, such as: -Pneumonia -Skin, Soft Tissue -Endocarditis -UTI -Bone, Joint Infection -Implantable Device -Acute Abdominal Infection -Wound Infection -Meningitis -Blood Stream Catheter Infection -Unknown System Inflammatory Response Syndrome: Not Applicable Review of Systems - Review Of Systems Constitutional: Reports: No symptoms Eyes: Reports: No symptoms Ears, Nose, Mouth, Throat: Reports: No symptoms Respiratory: Reports: No symptoms Cardiac: Reports: No symptoms GI: Reports: No symptoms : Reports: No symptoms Musculoskeletal: Reports: No symptoms Skin: Reports: No symptoms Neurological: Reports: No symptoms Endocrine: Reports: No symptoms Hematologic/Lymphatic: Reports: No symptoms All Other Systems: Reviewed and Negative Past Medical History - Past Medical History Previously Healthy: Yes Endocrine: Reports: None Cardiovascular: Reports: None Respiratory: Reports: COPD, Asthma Hematological: Reports: None Gastrointestinal: Reports: None Genitourinary: Reports: None Neuro/Psych: Reports: None Musculoskeletal: Reports: None Cancer: Reports: None Last Menstrual Period: hysterectomy - Surgical History General Surgical History: Reports: Hysterectomy - Family History Family History: Reports: None - Social History Smoking Status: Current every day smoker, Light tobacco smoker Hx Substance Use: No Alcohol Screening: None Physical Exam - Physical Exam Appearance: Well-appearing, No pain distress, Well-nourished, Thin Ill-appearing: None Pain Distress: None Eyes: ZEINAB, EOMI, Conjunctiva clear ENT: Ears normal, Nose normal, Oropharynx normal Respiratory: Airway patent, Breath sounds clear, Breath sounds equal, Respirations nonlabored Cardiovascular: RRR, Pulses normal, No rub, No murmur GI/: Soft, Nontender, No masses, Bowel sounds normal, No Organomegaly Musculoskeletal: Normal strength, ROM intact, No edema, No calf tenderness Skin: Warm, Dry, Normal color Neurological: Sensation intact, Motor intact, Reflexes intact, Cranial nerves intact, Alert, Oriented Psychiatric: Affect appropriate, Mood appropriate Critical Care Note - Critical Care Note Total Time (mins): 60 (monitored cardiovascular and neurolog status) Course - Course Hematology/Chemistry: 09/26/17 11:00 09/26/17 11:00 Orders, Labs, Meds: Lab Review 09/26/17 09/26/17 09/26/17 10:50 10:50 11:00 WBC 7.61 RBC 4.67 Hgb 13.8 Hct 40.7 MCV 87.2 MCH 29.6 MCHC 33.9 RDW Coeff of [place] 13.9 Plt Count 239 Immature Gran % (Auto) 0.1 Neut % (Auto) 61.2 Lymph % (Auto) 29.0 [place] % (Auto) 6.0 Eos % (Auto) 2.9 Baso % (Auto) 0.8 Immature Gran # (Auto) 0.0 Neut # (Auto) 4.7 Lymph # (Auto) 2.2 [place] # (Auto) 0.5 Eos # (Auto) 0.2 Baso # (Auto) 0.1 Sodium Potassium Chloride Carbon Dioxide Anion Gap BUN Creatinine Estimated GFR (MDRD) BUN/Creatinine Ratio Glucose Calcium Total Bilirubin AST ALT Alkaline Phosphatase Troponin I Total Protein Albumin Globulin Albumin/Globulin Ratio Urine Color Yellow Urine Clarity Cloudy Urine pH 5.5 Ur Specific [place] 1.025 Urine Protein Negative Urine Glucose (UA) Negative Urine Ketones Negative Urine Blood Trace-intact Urine Nitrite Positive Urine Bilirubin Negative Urine Urobilinogen 0.2 Ur Leukocyte Esterase Trace Urine Microscopic WBC 20-30 Ur Squamous Epith Cells Tntc Urine Bacteria 3+ Urine Opiates Screen Negative Ur Oxycodone Screen Negative Urine Methadone Screen Negative Ur Propoxyphene Screen Negative Ur Barbiturates Screen Negative U Tricyclic Antidepress Negative Ur Phencyclidine Scrn Negative Ur Amphetamine Screen Positive U Methamphetamines Scrn Positive U Benzodiazepines Scrn Positive Urine Cocaine Screen Negative U Cannabinoids Screen Positive 09/26/17 09/26/17 11:00 11:00 WBC RBC Hgb Hct MCV MCH MCHC RDW Coeff of [place] Plt Count Immature Gran % (Auto) Neut % (Auto) Lymph % (Auto) [place] % (Auto) Eos % (Auto) Baso % (Auto) Immature Gran # (Auto) Neut # (Auto) Lymph # (Auto) [place] # (Auto) Eos # (Auto) Baso # (Auto) Sodium 142 Potassium 3.9 Chloride 109 H Carbon Dioxide 24 Anion Gap 12.9 BUN 14 Creatinine 0.75 Estimated GFR (MDRD) 82.00 BUN/Creatinine Ratio 18.66 Glucose 102 Calcium 8.9 Total Bilirubin 0.2 AST 17 ALT 16 Alkaline Phosphatase 86 Troponin I < 0.0100 Total Protein 6.3 L Albumin 3.1 L Globulin 3.2 Albumin/Globulin Ratio 0.97 Urine Color Urine Clarity Urine pH Ur Specific [place] Urine Protein Urine Glucose (UA) Urine Ketones Urine Blood Urine Nitrite Urine Bilirubin Urine Urobilinogen Ur Leukocyte Esterase Urine Microscopic WBC Ur Squamous Epith Cells Urine Bacteria Urine Opiates Screen Ur Oxycodone Screen Urine Methadone Screen Ur Propoxyphene Screen Ur Barbiturates Screen U Tricyclic Antidepress Ur Phencyclidine Scrn Ur Amphetamine Screen U Methamphetamines Scrn U Benzodiazepines Scrn Urine Cocaine Screen U Cannabinoids Screen Orders Category Date Time Status EKG-(ED ONLY) Stat CARDIO 09/26/17 10:48 Completed CBC W/ AUTO DIFF Stat LAB 09/26/17 11:00 Completed CMP [COMPREHENSIVE METABOLIC PANEL] Stat LAB 09/26/17 11:00 Completed TROPONIN I Stat LAB 09/26/17 11:00 Completed UA [URINALYSIS C & S IF INDICATED] Stat LAB 09/26/17 10:50 Completed URINE CULTURE Stat LAB 09/26/17 10:50 Completed URINE DRUG SCREEN (RAPID FOR ED) [DRUG SCREEN, URINE, LAB 09/26/17 10:50 Completed RAPID] Stat CHEST, 1V AP ONLY Stat RADS 09/26/17 10:48 Completed Vital Signs: Temp Pulse Resp BP Pulse Ox 09/26/17 10:34 97.8 F 84 16 141/93 H 98 CHEVY Risk Score CHEVY Risk Score: Risk Score Odds of by 30D 0 0.1 (0.1-0.2) 1 0.3 (0.2-0.3) 2 0.4 (0.3-0.5) 3 0.7 (0.6-0.9) 4 1.2 (1.0-1.5) 5 2.2 (1.9-2.6) 6 3.0 (2.5-3.6) 7 4.8 (3.8-6.1) Departure - Departure Time of Disposition: 13:10 Disposition: HOME SELF-CARE Discharge Problem: Syncopal episodes, Methamphetamine abuse Instructions: Syncope (ED), Cannabis Abuse (ED), Methamphetamine Abuse (ED) Condition: Fair Pt referred to PMD for follow-up: Yes (1week) IPMP verified?: No Additional Instructions: Avoid use of ilicit drugs Be aware of dangers of ilicit drug abuse due to possible adverse reaction and possible fatal outcome Allergies/Adverse Reactions: Allergies No Known Allergies Allergy (Verified 09/26/17 10:40) Home Medications: Ambulatory Orders 1 [No Reported Medications] 09/26/17 Disposition Discussed With: Patient Neurological Complaint Exam - Syncope/Near Syncope Complaint/Exam Symptoms Are: Resolved Episodes Lasting: Seconds Episodes Witnessed: Yes Loss of Consciousness: Yes (Brief) Associated Head Trauma: No Activity at Onset: With exertion Alleviating: Reports: Position change Associated Signs and Symptoms: Denies: Pain, Decreased oral intake, Vomiting, Diarrhea, GI blood loss, Short of air, Chest pain, Palpitations, Diaphoresis, Lightheadedness, Dizziness, Weakness, AMS, Numbness, Headache, Seizure, Remote head trauma, Recent head trauma Related History: Similar episode Cardiac Risk Factors: Reports: Smoking, Family history GI Bleed Risk Factors: Reports: None Dysrhythmia Risk Factors: Reports: >45 years old (substance abuse) Related Surgical History: Reports: None Carotid Bruit Present: No Nystagmus Present: No Gag Reflex Present: Yes Meningeal Signs Positive: No Focal Weakness: Present: None Focal Sensory Loss: Present: None Gait: Normal [id number]: Normal Findings Romberg Test Positive: No Babinski Sign: Negative Right, Negative Left Heel to Toe Normal: Yes Differential Diagnoses: Hypoglycemia, Seizure, Vasovagal Episode, Other (drug reaction )
--- NOTE | 2017-09-26 11:24 | DI ---
EXAM: Chest, one-view HISTORY: Syncope FINDINGS: Cardiac and mediastinal contours are normal. Pulmonary vasculature is normal. Lungs are clear. Atherosclerotic calcification of the aorta. Bony thorax is unremarkable. IMPRESSION: No acute cardiopulmonary disease.
== END 2017-09-26 13:18 | disposition home or self-care (01) ==
LOC: ED 10:33
DX: R55 Syncope and collapse (principal); F15.10 Other stimulant abuse, uncomplicated; F12.10 Cannabis abuse, uncomplicated; F17.210 Nicotine dependence, cigarettes, uncomplicated
CPT/HCPCS: 36415; 80053; 80306; 81001; 84484; 85025; 87086; 87186; 93005; 93010; 99284